=== PATIENT | female | born 1995 | race Caucasian/White ===

== ENCOUNTER 2024-11-07 13:30 | Outpatient (CLI) | payer OTHER, SELFPAY ==
[2024-11-07 13:58] VITALS: BP 128/75; PULSE 112
[2024-11-07 13:59] VITALS: PULSE 121; O2SAT 97
[2024-11-07 14:08] VITALS: BMI 39.6
[2024-11-07 14:14] VITALS: RESP 16; TEMP 36.9
--- NOTE | 2024-11-07 17:56 | OB.TRI.NOTE ---
HPI - General General Date of Admission: 11/07/24 Date of Service: 11/07/24 Chief Complaint: contractions HPI Narrative GILBERTO WILLIAM, is a 29 F who presents c/o ctxs. Maternal Data Information Final CHANDNI: 11/20/24 Gestational age: 38 1/7 PFSH PFSH Allergy/AdvReac Type Severity Reaction Status Date / Time No Known Allergies Allergy Verified 11/07/24 14:07 NST FHR Rate Baby A Baseline: 135 Variability:: Moderate Accelerations:: 15 x 15 Decelerations:: None NST Reactive:: Yes Uterine Activity:: irreg ctxs Assessment & Plan (1) 38 weeks gestation of : (2) False labor after 37 completed weeks of gestation: (3) Maternal obesity syndrome in third trimester: (4) BMI 39.0-39.9,adult: (5) High risk multigravida in third trimester: PLAN: no evidence of active labor, reactive NST. D/c home, f/u in office as scheduled or return prn. Kick counts. Tentative elective induction at 39+ weeks on 11/14/23
== END 2024-11-07 16:20 | disposition home or self-care (01) ==
LOC: WPOUT 13:44 → WP 13:45
PROVIDERS: Referring Provider Obstetrics & Gynecology; Visit Provider Obstetrics & Gynecology
DX: O47.1 False labor at or after 37 completed weeks of gestation (principal); O99.213 Obesity complicating pregnancy, third trimester; Z3A.38 38 weeks gestation of pregnancy
CPT/HCPCS: 59025; 59050; 99221; G0378

== ENCOUNTER 2024-11-12 13:23 | Outpatient (CLI) | payer OTHER, SELFPAY ==
[2024-11-12] VITALS (14 sets, daily range): BP systolic 136; BP diastolic 86–87; PULSE 105–136; RESP 18; TEMP 36.8; O2SAT 96–98; BMI 39.6
[2024-11-12 14:18] LABS: Mucous, Urine 0 SEEN /hpf (<or=2+)
[2024-11-12 14:21] LABS: Color, Urine Yellow (Yellow); Glucose, Dipstick Normal (Normal); Ketone-Dipstick 5 mg/dl (Negative); Leukocyte Esterase-Dipstick 25 /ul (Negative); Nitrite-Dipstick Negative (Negative); Occult Blood-Urine 10 /ul (Negative); Protein-Dipstick 30 mg/dl (Negative); Urine Clarity Sl. Cloudy (Clear); Urine Urobilinogen 4 mg/dl (Normal)
[2024-11-12 14:25] LABS: Urine Bilirubin Dipstick 1 mg/dL (Negative)
[2024-11-12 14:31] LABS: Bacteria 1+ /hpf (None Seen); Squamous Epithelial Cells - UA 5-10 SEEN /hpf (5-10); White Blood Cells 0-5 SEEN /hpf (0-5)
[2024-11-12 14:32] LABS: Red Blood Cells-Urine 0-5 SEEN /hpf (0-5)
[2024-11-12] MEDS: Lactated Ringers 1,000 ML 999 ML IV (14:45)
--- NOTE | 2024-11-12 17:39 | OB.TRI.NOTE ---
HPI - General General Date of Admission: 11/12/24 Date of Service: 11/12/24 Chief Complaint: R/o labor HPI Narrative GILBERTO WILLIAM, is a 29 F who presents abdominal pain radiates to left side. No LOF no vaginal bleeding. CVX unchanged with multiple checks. Pain for IOL on Sunday. Blood present in urine. Symptoms consistent with kidney stone. After IVF and zofran pain improved. Few mild contractions on CRISPIN and palpations. Induction Consents signed Maternal Data Information Final CHANDNI: 11/20/24 Gestational age: 38+6 PFSH PFSH Home Medications ?Medication ?Instructions ?Recorded ?Last Taken ?Type sbdsdpja-[id number]-Az-FA 1 mg tab PO 11/12/24 11/11/24 21:00 History tablet 1 TAB Allergy/AdvReac Type Severity Reaction Status Date / Time Environmental Allergies: Allergy Mild Other Verified 11/12/24 13:49 Uncoded (dust) ROS Constitutional Constitutional: Denies fatigue, fever(s) or malaise Eyes Eyes: Denies change in vision ENT HEENT: Denies dizziness or headache(s) Cardiovascular Cardiovascular: Denies chest pain, dyspnea or lightheadedness Respiratory/Chest Respiratory/Chest: Denies cough or dyspnea Gastrointestinal Gastrointestinal: Denies change in bowel habits Genitourinary Genitourinary: Denies burning urination or genital lesions Integumentary Integumentary: Denies rash Neurologic Neurologic: Denies confusion, dizziness, headache(s), numbness or weakness Physical Exam Const alert and no apparent distress General Appearance: cooperative HEENT normocephalic Resp normal respiratory effort GI soft to palpation GI Narrative: gravid, nontender, appropriate for gestational age Extremity no calf tenderness General Extremity: edema Skin no wounds Rashes: No rashes noted Psych activity/motor behavior normal NST FHR Rate Baby A Baseline: 140 Variability:: Moderate Accelerations:: 15 x 15 Decelerations:: None NST Reactive:: Yes FHR Category:: Category I Uterine Activity:: occasional Assessment & Plan (1) Abdominal pain affecting : (2) 38 weeks gestation of : PLAN: Plan Discharged home IOL 11/14/24
== END 2024-11-12 17:58 | disposition home or self-care (01) ==
LOC: WPOUT 13:30 → WP 13:32
PROVIDERS: Referring Provider Obstetrics & Gynecology; Visit Provider Obstetrics & Gynecology
DX: O99.891 Other specified diseases and conditions complicating pregnancy (principal); R10.9 Unspecified abdominal pain; Z3A.38 38 weeks gestation of pregnancy
CPT/HCPCS: 96365; 59025; 59050; 81001; 99221; G0378

== ENCOUNTER 2024-11-14 07:22 | Inpatient (IN) | payer OTHER, SELFPAY ==
[2024-11-14] VITALS (85 sets, daily range): BP systolic 89–142; BP diastolic 53–92; PULSE 78–130; RESP 16–18; TEMP 36.3–36.6; O2SAT 95–100; BMI 39.6
[2024-11-14] MEDS: Lactated Ringers 1,000 ML 50 ML IV (07:55)
[2024-11-14] MEDS: Penicillin G Pot 5,000,000 UNITS in 0.9% Normal Saline (100mL MB+) 100 ML 150 UNITS IV (08:15)
[2024-11-14] MEDS: Oxytocin 15 Units/NS 250ml 15 UNITS/250 ML IV.SOLN 2 UNITS IV (08:15)
[2024-11-14 08:16] LABS: Absolute Lymphocyte Count 2.42 X10^3/uL (0.83-4.51); Basophil# 0.07 X10^3/uL; Basophil% 0.6 % (0-1); Eosinophil# 0.12 X10^3/uL; Hematocrit 33.2 % (37-47); Hemoglobin 11.1 g/dL (12.0-15.0); Lymphocyte # 2.42 X10^3/ul (0.83-4.51); Lymphocyte % 20.5 % (19-41); Mean Corp Hgb Conc 33.4 g/dL (32-36); Mean Corpuscular Hgb 27.5 pg (27.0-32.0); Mean Corpuscular Volume 82.4 fL (81-99); Mean Platelet Vol. 10.2 fl (6.2-12.0); Monocyte# 1.03 X10^3/uL; Monocyte% 8.7 % (0-10); NRBC Flagged by Analyzer 0 % (0-5); Neutrophil # 8.03 X10^3/uL (2.7-7.7); Neutrophil % 68.2 % (47-70); Platelet Count 295 K/mm3 (150-450); RBC Distribution Width CV 14.6 % (11.6-14.6); RBC Distribution Width SD 42.5 fl (35.1-43.9); Red Blood Count 4.03 M/mm3 (4.2-5.4); White Blood Count 11.8 K/mm3 (4.4-11.0)
--- NOTE | 2024-11-14 08:46 | HP.PCM.OB_ITS ---
HPI - General General Date of Admission: 11/14/24 HPI Narrative GILBERTO WILLIAM, is a 29 F who presents for scheduled elective induction of labor. Maternal Data Information CHANDNI Calculator Estimated Delivery Date Method Current WG Current Estimate 11/20/24 Manual 39w 1d Gestational age: 39.1 PFSH PFS Medical History (Updated 11/14/24 @ 08:49 by Judie Young CNM) hemorrhage depression Anxiety Home Medications ?Medication ?Instructions ?Recorded ?Last Taken ?Type qpmdfdrs-uyc-Nu-FA 1 mg 1 tab PO DAILY 11/12/24 11/13/24 22:00 History tablet famotidine 20 mg tablet (Pepcid) 20 mg PO QHS heartburn 11/14/24 11/13/24 22:00 History Allergy/AdvReac Type Severity Reaction Status Date / Time Environmental Allergies: Allergy Mild Other Verified 11/14/24 07:22 Uncoded (dust) Family History no significant family his Surgical History (Updated 11/14/24 @ 08:11 by Melvin Spence) History of surgery Social History Smoking Status: Never smoker History Elective abortions Hx Para 1 Spontaneous abortions Hx # Term Pregnancies Ectopic pregnancies Hx # Pregnancies Multiple births # of living children NST FHR Rate Baby A Baseline: 140 Variability:: Moderate Accelerations:: 15 x 15 Decelerations:: None NST Reactive:: Yes ROS Eyes Eyes: Denies blurry vision, change in vision or spots in vision ENT HEENT: Denies dizziness or headache(s) Cardiovascular Cardiovascular: Denies abdominal pain, chest pain or dyspnea Respiratory/Chest Respiratory/Chest: Denies cough, dyspnea, shortness of breath at rest or shortness of breath with exertion Gastrointestinal Gastrointestinal: Denies abdominal pain, diarrhea or vomiting Genitourinary Genitourinary: Denies change in urinary stream, difficulty urinating or dysuria Musculoskeletal Musculoskeletal: Reports none Integumentary Integumentary: Denies rash Neurologic Neurologic: Denies dizziness, headache(s), memory loss or weakness Psychiatric Psychiatric: Reports none Vital Signs Vital Signs Vital Signs: 11/14/24 07:35 11/14/24 07:35 11/14/24 07:35 Temperature 97.7 F L Temperature Source Temporal Pulse Rate Respiratory Rate 18 Blood Pressure BP Systolic BP Diastolic Pulse Ox 11/14/24 07:36 11/14/24 07:36 11/14/24 07:36 Temperature Temperature Source Pulse Rate 130 H Respiratory Rate Blood Pressure 121/80 H BP Systolic 121 BP Diastolic 80 Pulse Ox 95 11/14/24 08:30 11/14/24 08:30 11/14/24 08:35 Temperature Temperature Source Pulse Rate 118 H 111 H Respiratory Rate Blood Pressure BP Systolic BP Diastolic Pulse Ox 97 11/14/24 08:35 11/14/24 08:40 11/14/24 08:40 Temperature Temperature Source Pulse Rate 114 H Respiratory Rate Blood Pressure BP Systolic BP Diastolic Pulse Ox 97 97 11/14/24 08:45 11/14/24 08:45 Temperature Temperature Source Pulse Rate 111 H Respiratory Rate Blood Pressure BP Systolic BP Diastolic Pulse Ox 97 Weight Weight: 246 lb Body Mass Index (BMI) 39.6 Physical Exam Const alert, oriented x3 and no apparent distress General Appearance: cooperative Orientation / Consciousness: awake Exam Limitations: no limitations HEENT normocephalic Head and Scalp: normal to inspection Eyes General Eye: normal appearance of both eyes Neck full ROM and no lymphadenopathy Lymph Lymphatic: no lymphadenopathy noted Chest inspection of chest normal Resp normal respiratory effort, normal air movement and clear to auscultation bilate rally Effort and Inspection: able to speak in complete sentences and symmetric chest movement Cardio regular rate and regular rhythm GI normal to inspection, nondistended, normoactive bowel sounds Manual OB Exam: presentation cephalic Back/Spine normal ROM Extremity full ROM and no calf tenderness Skin no rashes or lesions noted General Skin Exam: no breakdown Neuro oriented x3 and CN's II-XII intact bilaterally Psych mental status grossly normal and thought process normal Labs Labs Labs: Blood Type A NEGATIVE Antibody Screen NEGATIVE Hct 33.2 % (37-47) L Hgb 11.1 g/dL (12.0-15.0) L Syphilis Total Ab Non-reactive Assessment & Plan (1) High risk multigravida in third trimester: (2) BMI 39.0-39.9,adult: (3) Maternal obesity syndrome in third trimester: (4) 39 weeks gestation of : (5) Encounter for induction of labor: (6) Late care: (7) Rh negative status during : (8) Positive GBS test: PLAN: Plan Admit to L&D Routine labs Start IV and run fluids per orders GBS positive- Start PCN IV CE- 2/50/-2 Start Pitocin at 2 mu/min and increase per orders Pain medication when indicated Dr. Medeiros notified of admission and is collaborating physician
[2024-11-14 09:06] LABS: Syphilis Antibodies Non-reactive
[2024-11-14] MEDS: Lactated Ringers 1,000 ML 999 ML IV (10:47)
[2024-11-14] MEDS: fentaNYL-bupivacaine (epidural) 100 ML BAG EPIDURAL ×2 (11:54→16:16)
[2024-11-14] MEDS: Penicillin G 3,000,000 Units 50 ML 100 UNITS IV ×2 (12:19→16:14)
[2024-11-14] MEDS: Lactated Ringers 1,000 ML 200 ML IV (16:12)
[2024-11-14 17:07] LABS: Bacteria 0 SEEN /hpf (None Seen); Mucous, Urine 0 SEEN /hpf (<or=2+); Red Blood Cells-Urine 0 SEEN /hpf (0-5); Squamous Epithelial Cells - UA 0 SEEN /hpf (5-10)
[2024-11-14 17:17] LABS: Color, Urine Yellow (Yellow); Glucose, Dipstick Normal (Normal); Ketone-Dipstick 50 mg/dl (Negative); Leukocyte Esterase-Dipstick 25 /ul (Negative); Nitrite-Dipstick Negative (Negative); Occult Blood-Urine Negative /ul (Negative); Protein-Dipstick 30 mg/dl (Negative); Specific Gravity, Urine 1.015 (1.002-1.030); Urine Bilirubin Dipstick Negative (Negative); Urine Clarity Clear (Clear); Urine Urobilinogen 1 mg/dl (Normal); Urine pH 6.5 (5.0 - 8.0)
[2024-11-14 17:27] LABS: White Blood Cells 0-5 SEEN /hpf (0-5)
[2024-11-14] MEDS: 0.9% Saline Lock 10 ML Syringe IV ×3 (17:30→21:29)
--- NOTE | 2024-11-14 18:26 | PCM.PN.CNM ---
Subjective Subjective Patient seen at bedside. Comfortable with epidural. Objective Data Objective Data Vital Signs: Vital Signs Temp Pulse Resp BP Pulse Ox 97.5 F L 101 H 18 110/58 L 98 11/14/24 17:26 11/14/24 17:26 11/14/24 17:26 11/14/24 18:26 11/14/24 17:25 Weight: 246 lb Body Mass Index (BMI) 39.6 Intake & Output: Intake and Output for Last 24 Hours 11/12/24 11/13/24 11/14/24 23:59 23:59 23:59 Intake Total 2073.14 / 2073. Output Total 80 / 80 Balance 1993. / Lab / Micro Data 11/14/24 07:55 Labs: Laboratory Results - last 24 hr 11/14/24 07:55: WBC 11.8 H, RBC 4.03 L, Hgb 11.1 L, Hct 33.2 L, MCV 82.4, MCH 27.5, MCHC 33.4, RDW Std Deviation 42.5, RDW Coeff of [place] 14.6, Plt Count 295, MPV 10.2, Immature Gran % (Auto) 1.000 H, Neut % (Auto) 68.2, Lymph % (Auto) 20.5, [place] % (Auto) 8.7, Eos % (Auto) 1.0, Baso % (Auto) 0.6, Absolute Neuts (auto) 8.0 H, Absolute Lymphs (auto) 2.42, Nucleated RBC % 0, Syphilis Total Ab Non-reactive, Blood Type A NEGATIVE, Antibody Screen NEGATIVE 11/14/24 17:00: Urine Color Yellow, Urine Clarity Clear, Urine pH 6.5, Ur Specific [place] 1.015, Urine Protein 30 H, Urine Glucose (UA) Normal, Urine Ketones 50 H, Urine Occult Blood Negative, Urine Nitrite Negative, Urine Bilirubin Negative, Urine Urobilinogen 1 H, Ur Leukocyte Esterase 25 H, Urine RBC 0 SEEN, Urine WBC 0-5 SEEN, Ur Squamous Epith Cells 0 SEEN, Urine Bacteria 0 SEEN, Urine Mucus 0 SEEN Assessment & Plan (1) Positive GBS test: (2) Rh negative status during : (3) Late care: (4) Encounter for induction of labor: (5) 39 weeks gestation of : (6) Maternal obesity syndrome in third trimester: (7) Kidney stone complicating : PLAN: Plan CE /-2 Tracing difficult at times due to maternal position IUPC and FSE placed Pitocin at 16 mu /min Contractions every 1-3 minutes and palpate moderate and relaxed in between PCN IV every 4 hours until delivery Urine is dark in color- Culture sent
[2024-11-14] MEDS: Oxytocin 15 Units/NS 250ml 15 UNITS/250 ML IV.SOLN 83 UNITS IV (20:50)
--- NOTE | 2024-11-14 20:56 | EX.PCM.OBVAG ---
Assessment & Plan (1) (spontaneous vaginal delivery): (2) Laceration, obstetrical, second degree: Maternal Data Information CHANDNI Calculator Estimated Delivery Date Method Current WG Current Estimate 11/20/24 Manual 39w 1d Doctor Who Attended Delivery: Judie Young Vaginal Delivery Maternal Presentation Maternal Presentation: Elective Induction Maternal Presentation: at 39.1 weeks gestation for elective induction of labor. Type of Induction: Pitocin and Amniotomy Vaginal Delivery Information Procedure Performed: Spontaneous Vaginal Delivery Pre-Procedure Diagnosis: Term gestation, Elective induction of labor Post-Procedure Diagnosis: , Live male infant Type of anesthesia: Epidural Estimated Blood Loss: 400 Time of Delivery: 20:32 Findings Description of procedure: Patient progressed to complete dilation. With good maternal effort, head delivered followed by anterior shoulder and remainder of infant body without any force, delay, or traction. Vigorous male was delivered atraumatically and placed on maternal abdomen. Pitocin IV started for active management of the third stage of labor. 3 vessel cord clamped and cut after delay and placed immediately skin to skin with patient. Cord blood collected and sent. Placenta delivered spontaneously and intact. Uterus initially boggy but firmed up quickly with fundal massage and bimanual uterine pressure. A second degree laceration was repaired in usual fashion using 3-0 Vicryl Rapid. Hemostasis obtained. Vaginal sweep performed. Fundus is firm 2 below U and bleeding is hemostatic. Sponge and sharps counts correct. Patient and infant bonding well at this time. Dr. Medeiros notified of delivery. Routine post orders placed. 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
[2024-11-14] MEDS: Ondansetron 4 MG/2 ML Vial IV (21:29)
[2024-11-14] MEDS: Acetaminophen 500 MG Tablet 1000 MG PO (23:53)
[2024-11-15 02:00] VITALS: BP 131/81; PULSE 71; RESP 16; TEMP 37; O2SAT 98
[2024-11-15] MEDS: Naproxen 500 MG Tablet PO ×3 (02:00→18:13)
[2024-11-15] MEDS: Rho(D) Immune Globulin 300 MCG (1500 Unit) Syringe IV (05:17)
[2024-11-15] MEDS: Acetaminophen 500 MG Tablet 1000 MG PO ×3 (05:56→21:01)
[2024-11-15 06:00] VITALS: BP 100/62; PULSE 65; RESP 16; TEMP 36.7; O2SAT 95
--- NOTE | 2024-11-15 08:10 | PCM.PN.CNM ---
Subjective Subjective Patient seen at bedside. Feeling good. Slight headache and neck pain. Slept with heating pad. Ambulating and voiding without difficulty. Lochia is moderate. Denies any dizziness, SOB, or CP. Formula feeding infant. Desires discharge home tomorrow. Objective Data Objective Data Vital Signs: Vital Signs Temp Pulse Resp BP Pulse Ox O2 Del Method 98.1 F 65 16 100/62 95 Room Air 11/15/24 06:00 11/15/24 06:00 11/15/24 06:00 11/15/24 06:00 11/15/24 06:00 11/15/24 06:00 Oxygen Delivery Method Room Air Weight: 246 lb Body Mass Index (BMI) 39.6 Intake & Output: Intake and Output for Last 24 Hours 11/13/24 11/14/24 11/15/24 23:59 23:59 23:59 Intake Total 3391.50 / 3391.50 Output Total 480 / 480 3100 / 3100 Balance 2911.50 / 2911.50 -3100 / -3100 Lab / Micro Data Attestation: I reviewed the patient's lab results. 11/14/24 07:55 Labs: Laboratory Results - last 24 hr 11/14/24 07:55: WBC 11.8 H, RBC 4.03 L, Hgb 11.1 L, Hct 33.2 L, MCV 82.4, MCH 27.5, MCHC 33.4, RDW Std Deviation 42.5, RDW Coeff of Aubrey 14.6, Plt Count 295, MPV 10.2, Immature Gran % (Auto) 1.000 H, Neut % (Auto) 68.2, Lymph % (Auto) 20.5, [place] % (Auto) 8.7, Eos % (Auto) 1.0, Baso % (Auto) 0.6, Absolute Neuts (auto) 8.0 H, Absolute Lymphs (auto) 2.42, Nucleated RBC % 0, Syphilis Total Ab Non-reactive, Blood Type A NEGATIVE, Antibody Screen NEGATIVE 11/14/24 17:00: Urine Color Yellow, Urine Clarity Clear, Urine pH 6.5, Ur Specific [place] 1.015, Urine Protein 30 H, Urine Glucose (UA) Normal, Urine Ketones 50 H, Urine Occult Blood Negative, Urine Nitrite Negative, Urine Bilirubin Negative, Urine Urobilinogen 1 H, Ur Leukocyte Esterase 25 H, Urine RBC 0 SEEN, Urine WBC 0-5 SEEN, Ur Squamous Epith Cells 0 SEEN, Urine Bacteria 0 SEEN, Urine Mucus 0 SEEN 11/14/24 22:30: Screen NEGATIVE, Baby's Blood Type A POSITIVE, Baby's MAURICE NEGATIVE ROS Eyes Eyes: Denies blurry vision, change in vision or spots in vision ENT HEENT: Denies dizziness or headache(s) Cardiovascular Cardiovascular: Denies abdominal pain, chest pain or dyspnea Respiratory/Chest Respiratory/Chest: Denies cough, dyspnea, shortness of breath at rest or shortness of breath with exertion Gastrointestinal Gastrointestinal: Denies abdominal pain, diarrhea or vomiting Genitourinary Genitourinary: Denies change in urinary stream, difficulty urinating or dysuria Musculoskeletal Musculoskeletal: Reports none Integumentary Integumentary: Denies rash Neurologic Neurologic: Denies dizziness, headache(s), memory loss or weakness Physical Exam Const alert and no apparent distress General Appearance: cooperative and comfortable Exam Limitations: no limitations HEENT normocephalic Eyes General Eye: normal appearance of both eyes Neck full ROM General: normal visual inspection Chest Chest: symmetrical chest wall rise Resp normal respiratory effort and normal air movement Effort and Inspection: symmetric chest movement Auscultation: clear to auscultation bilaterally Cardio regular rate and regular rhythm GI normal to inspection, nondistended, normoactive bowel sounds Back/Spine normal ROM Extremity full ROM and no calf tenderness General Extremity: normal exam except as noted Skin no rashes or lesions noted Neuro oriented x3 Speech: speech normal Psych mental status grossly normal Thought Process: normal thought process Assessment & Plan (1) Laceration, obstetrical, second degree: (2) (spontaneous vaginal delivery): (3) Rh negative status during : (4) Anxiety: (5) depression: PLAN: Plan PPD 1 Routine care Formula feeding infant Hx of PP anxiety and has prescription for Zoloft 25 mg PO at home. Planning to start medications if needed once discharged Anticipate discharge home tomorrow
[2024-11-15 08:22] VITALS: BP 82/53; PULSE 76; RESP 16; TEMP 36.6; O2SAT 100
[2024-11-15] MEDS: Benzocaine/Lanolin/Aloe Vera 85 GM Spray 1 SPRAY TOPICAL (10:10)
[2024-11-15] MEDS: Senna/Docusate Sodium 1 Tablet PO (10:12)
[2024-11-15 12:19] VITALS: BP 122/84; RESP 16; TEMP 36.2
[2024-11-15 16:09] VITALS: BP 120/84; PULSE 83; RESP 14; TEMP 36.2; O2SAT 99
[2024-11-15 20:25] VITALS: BP 120/81; PULSE 92; RESP 18; TEMP 36.2; O2SAT 97
[2024-11-16 02:27] VITALS: BP 116/82; PULSE 87; RESP 16; TEMP 36.2; O2SAT 98
[2024-11-16] MEDS: Naproxen 500 MG Tablet PO ×2 (02:32→10:25)
[2024-11-16] MEDS: Acetaminophen 500 MG Tablet 1000 MG PO ×2 (04:49→11:53)
--- NOTE | 2024-11-16 07:08 | PCM.DC.SUM ---
Providers Date of Admission: 11/14/24 Primary Care Physician: No Primary Care Phys Reason For Visit: INDUCTION Diagnosis Discharge Diagnosis (1) Laceration, obstetrical, second degree: Status: Acute Code(s): O70.1 - Second degree perineal laceration during delivery (2) (spontaneous vaginal delivery): Status: Acute Code(s): O80 - Encounter for full-term uncomplicated delivery (3) Rh negative status during : Status: Acute Code(s): O26.899 - Other specified related conditions, unspecified trimester; Z67.91 - Unspecified blood type, Rh negative (4) Anxiety: Status: Acute Code(s): F41.9 - Anxiety disorder, unspecified (5) depression: Status: Acute Code(s): F53.0 - depression Plan PPD 2 Routine care Formula feeding infant Hx of PP anxiety and has prescription for Zoloft 25 mg PO at home. Planning to start medication once home D/C home with follow up in office Medications at Discharge Home Medications amwkenea-emp-[id number]-FA 1 mg tablet 1 tab PO DAILY 11/12/24 famotidine 20 mg tablet (Pepcid) 20 mg PO QHS heartburn 11/14/24 acetaminophen 500 mg tablet 1,000 mg (2 x 500 mg) PO Q6H PRN PRN Pain 1-10 Or Fever #0 tabs 11/16/24 naproxen 500 mg tablet 500 mg PO Q8H PRN PRN Pain Score 1-10 #0 tabs 11/16/24 sennosides 8.6 mg-docusate sodium 50 mg tablet (Stimulant Laxative Plus) 1 - 2 tab PO DAILY PRN PRN Constipation #0 tabs 11/16/24 Hospital Course Operations None Procedures None Summary of Care Provided Minutes Spent on Discharge: 15 Hospital Course: Patient had vaginal delivery. Hospital course was uneventful. Physical Exam Narrative Patient seen at bedside. Denies pain. Ambulating and voiding without difficulty. Lochia decreased. Desires discharge home today. Const alert and oriented x3 General Appearance: Negative for in distress HEENT normocephalic Eyes General Eye: normal appearance of both eyes Neck General: normal visual inspection Chest Chest: symmetrical chest wall rise Resp normal respiratory effort and normal air movement Effort and Inspection: symmetric chest movement; Negative for tachypneic Auscultation: clear to auscultation bilaterally Cardio regular rate and regular rhythm Peripheral Pulses: pulses 2+ throughout GI normal to inspection, nondistended, normoactive bowel sounds Narrative: Ice to perineum OB / External & Speculum: vaginal bleeding and other Lochia decreasing Uterus Palpation: uterus fundus firm (Below U) Extremity normal to inspection, full ROM and normal capillary refill Skin no rashes or lesions noted Neuro oriented x3, CN's II-XII intact bilaterally and gait normal Psych mental status grossly normal, thought process normal and activity/motor behavior normal Weight / BMI Weight Weight: 246 lb Body Mass Index (BMI) 39.6 ABG / Lab / Microbiology Data 11/14/24 07:55 D/C Instructions Discharge Diet: No restrictions Discharge Activity: Return to Normal Activity, No Restrictions, May Drive, May Shower and May Take a Tub Bath (Warm water only. No bath salts, soaps, bubbles) May resume sexual activity in: 6-8 weeks Weight Bearing Status: Weight bearing as tolerated Call your doctor if you observe: Fever of 101 or Higher, Inability to urinate, Using more than 1 pad per hour, Shortness of breath, Dizziness, Chest pain, Calf discomfort and Uncontrolled pain DC O2, CPAP, BIPAP Needs Home O2 Discharge instructions: No Please Follow Up With: [facility] Jaiden OCAMPO When: 2 weeks in office or virtual Meaningful Use Info Meaningful Use Meaningful Use Diagnoses (Choose all that apply): None applicable Ischemic Stroke Statin Dosing Therapy Reference: STATIN DOSE THERAPY REFERENCE: * Patients > 75 years receive moderate or high dose statin therapy. * Patients 75 years or YOUNGER should receive HIGH intensity statin dose unless contraindicated. You will be required to document reason for non-treatment if statin daily dose does not meet guidelines. HIGH DOSE STATIN THERAPY DAILY Atorvastatin > than or = to 40 mg Rosuvastatin > than or = to 20 mg Amlodipine + Atorvastatin > than or = to 2.5/40 mg Ezetimibe + Simvastatin 10/80 mg Simvastatin 80mg Discharge Plan Admission Admit Date/Time: 11/14/24 07:18 Primary Reason for Your Visit: Labor and Delivery Attending Provider: Judie Young Primary Care Provider: Care Physician,No Primary Discharge Orders/Prescriptions Prescriptions: New sennosides-docusate sodium [Stimulant Laxative Plus] 8.6-50 mg Tablet 1 - 2 tab PO DAILY PRN PRN (Reason: Constipation) Qty: 0 0RF acetaminophen 500 mg Tablet 1,000 mg PO Q6H PRN PRN (Reason: Pain 1-10 Or Fever) Qty: 0 0RF naproxen 500 mg Tablet 500 mg PO Q8H PRN PRN (Reason: Pain Score 1-10) Qty: 0 0RF Continued knykruxc-jtq-Sq-FA 1 mg tablet 1 tab PO DAILY famotidine [Pepcid] 20 mg tablet 20 mg PO QHS Referrals / Follow Up: Judie Young CNM [Med Staff - Adv Practice Prof] - Care Physician,No Primary [Primary Care Provider] - Disposition Disposition (needs filled in before D/C Order can be placed): Home, Self Care
[2024-11-16 08:41] VITALS: BP 117/70; PULSE 94; RESP 16; TEMP 36.6; O2SAT 98
--- NOTE | 2024-11-16 11:00 | CASEMGMT ---
Social Work Assessment Labor and Delivery Unit Patient Address: [address] [place] [address] [place] [address] Phone number: [phone] Date of Referral: 11/15/2024 Time of Referral: 05:41 Referred By: Judie Young Date of Intervention: ?11/16/2024 Time of Intervention: 11:02 Reason for Referral: Mental Health; History of PPD and Anxiety History obtained from: Medical records, mother of baby (MOB) and father of baby (FOB).? Household composition: MOB, (Shea), FOB (Sukumar), and their two sons, Deandre, age 2, and Sherron, born on 11/14/2024. Patient's parent/guardian status: MOB and FOB have been together for 9 years and for 5 years. ???Both are actively involved and will be providing care for baby. MOB denied any concerns with domestic violence and described a positive and supportive relationship with the FOB. Medical History: MOB received care from [facility] beginning at 13 weeks and 4 days. Visits were observed to be routine. : 2, Para, now 2. Apgars: 7 and 9. Weight: 8 pounds, 10 ounces. Transactional Paralegal: Dr. Chavez. Educational Status: MOB and FOB denied any issues or concerns with reading or writing. MOB earned a Bachelor?s degree in Business Administration and [place] and the FOB attended some college but did not graduate. Financial Status: MOB and FOB reported their income is sufficient to meet the needs of their family at this time. 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 ? Infant Supplies: MOB and FOB reported they have all the supplies they need for baby at this time including but not limited to: Car Seat, bassinet, pack-n-play, diapers, bottles and clothing. Childcare/Caregiver(s):? MOB identified herself as the person who will be the primary caregiver for and ?s sibling. The FOB will also help provide care/support during the times he is not working. Transportation:? MOB and FOB reported they are both licensed drivers and have a reliable vehicle to take baby to and from all medical appointments. No transportation issues identified. Programs/Agencies Involved: MOB and FOB denied any previous or current programs or agency involvement. Children Services/Legal Issues:? Denied. Behavioral Health Issues: ??Mental Health History: ??PPD, AHDH and Anxiety although MOB reported it was mostly anxiety and constant checking on firstborn to make sure firstborn was always breathing and trying to do everything herself instead of asking for help.? MOB denied any previous or current depressive symptoms.? MOB stated the worry, and anxiety was related to being a new, first-time mom and described the anxiety as ?going away?. MOB denied being on any medication at this time but was given a script for anxiety should it be needed. ?FOB denied any mental health. ?Substance Use History:?? MOB and FOB denied any previous or current drug use or abuse and denied any alcohol abuse.? MOB ?reported each will drink occasionally/special occasions and stated if one of them drinks, the other one does not. ??Family History: MOB and FOB denied any drug or alcohol abuse or mental health issues with either of their families. ??Drug Screens: None obtained at the time of this admission. Family/Social Stressors: ?MOB and FOB denied any current family or social stressors. Support Systems: Ample.? MOB identified her biggest supports as the FOB as well as both sets of parents of the MOB and FOB, (?s maternal grandmother (MGM) and maternal grandfather (MGF) live next door to the MOB and FOB with connecting yards),as well as MOB and FOB?s neighbors who are close in age and also have same age children. Depression/Shaken Baby/Safe Sleeping: circulation worker provided verbal and written education on PPD, Safe Sleeping and Shaken Baby.? Parents verbalized an understanding. ??? ASSESSMENT:? MOB and FOB provided consent to social work visit. Upon arrival, MOB was sitting upright in the hospital bed holding and the FOB was close-by sitting on the couch.? circulation worker observed positive interaction between the MOB and FOB as well as positive interaction between the MOB and FOB who took turns feeding and burping . Both were very gentle with and attentive to ?s needs.? Both were engaged and expressed excitement with and looking forward to going home. At the end of the assessment, social media analyst requested to speak with the MOB alone which both MOB and FOB were agreeable to. MOB reported feeling safe in her home and denied any previous or current domestic violence, drug or alcohol abuse or untreated mental health concerns either with herself or with the FOB. Safe Plan of Care for related to substance use: N/A; not needed. ? PLAN:? Baby to be discharged home when ready.? circulation worker also provided written information on depression, depression resources and Help Me Grow as additional resources offered by social media analyst which MOB and FOB accepted. No other services requested or indicated. Maile De La Rosa, GRADUATE ASSISTANT ATHLETIC TRAINER, STAFF WEAPONS OFFICER
== END 2024-11-16 12:15 | disposition home or self-care (01) | DRG 807 ==
PROVIDERS: Admitting Provider Advanced Practice Midwife; Visit Provider Advanced Practice Midwife
DX: O26.03 Excessive weight gain in pregnancy, third trimester (principal); Z37.0 Single live birth; N20.0 Calculus of kidney; O99.892 Other specified diseases and conditions complicating childbirth; O26.893 Other specified pregnancy related conditions, third trimester; O70.1 Second degree perineal laceration during delivery; O99.820 Streptococcus B carrier state complicating pregnancy; Z67.11 Type A blood, Rh negative; Z3A.39 39 weeks gestation of pregnancy; Z87.59 Personal history of other complications of pregnancy, childbirth and the puerperium
CPT/HCPCS: 59025; 59050; 81001; 85025; 85461; 86780; 86850; 86900; 86901; 90384; 99221; A4216; G0378; J2405; J2790; J2791